=== PATIENT | male | born 1990 | race American Indian/Alaskan Native ===

== ENCOUNTER 2019-07-21 19:27 | Emergency (ER) | payer SELFPAY ==
--- NOTE | 2019-07-21 20:46 | Emergency Department Report ---
Blank Doc - Documentation Documentation: 28-year-old male that presents with left wrist pain. This initial assessment/diagnostic orders/clinical plan/treatment(s) is/are subject to change based on patient's health status, clinical progression and re- assessment by fellow clinical providers in the ED. Further treatment and workup at subsequent clinical providers discretion. Patient/guardians urged not to elope from the ED as their condition may be serious if not clinically assessed and managed. Initial orders include: 1- Patient sent to [facility] for further evaluation and treatment 2- xray
--- NOTE | 2019-07-21 21:19 | XRay Report ---
LEFT WRIST 4 VIEWS. INDICATION / CLINICAL INFORMATION: wrist pain COMPARISON: None available. FINDINGS: BONES / JOINT(S): No acute fracture or subluxation. No significant arthritis. SOFT TISSUES: No significant abnormality. ADDITIONAL FINDINGS: None. Signer Name: Jim Vail MD Signed: 07/21/2019 9:15 PM Workstation Name: [id number]
--- NOTE | 2019-07-22 01:58 | Emergency Department Report ---
Upper Extremity - HPI Chief Complaint: Extremity Injury, Upper Stated Complaint: WRIST INJURY Time Seen by Provider: 07/21/19 20:45 Other History: Patient is a 28-year-old male who presents to the emergency room with complaints of left wrist pain that radiates to the left thumb that began 2 weeks ago. He denies any fall or injury. He states he does a lot of repetitive movements at work and lifts heavy. He denies any numbness or weakness. He denies any previous injury of the wrist. He denies any past medical history allergies medications. ED Review of Systems ROS: Stated complaint: WRIST INJURY Other details as noted in HPI Comment: All other systems reviewed and negative ED Past Medical Hx - Past Medical History Hx Asthma: Yes - Social History Smoking Status: Current Every Day Smoker Substance Use Type: Marijuana - Medications Home Medications: Home Medications Medication Instructions Recorded Confirmed Last Taken Type LORazepam [Ativan] 1 mg PO BID PRN #20 tablet 01/18/15 Unknown Rx Acetaminophen/Codeine [Tylenol #3] 1 tab PO Q6H #14 tab 10/31/15 Unknown Rx Ibuprofen [Motrin] 800 mg PO Q8HR #30 tablet 10/31/15 Unknown Rx Naproxen [Naprosyn TAB] 500 mg PO BID PRN #20 tablet 07/22/19 Unknown Rx Upper Extremity Exam - Exam General: Vital signs noted. No distress. Alert and acting appropriately. Elbow: Yes Normal Range of Motion in Elbow, No Elbow Tenderness, No Elbow Deformity Forearm: No Forearm Tenderness, No Forearm Deformity, No Pain with Pronation, No Pain with Supination Wrist: Yes Wrist Tenderness (left lateral wrist TTP, no edema, no deformity, FROM of the left wrist, 2+ radial pulse, TTP over the left thenar emminence), Yes Normal ROM in Wrist, No Wrist Deformity, No Snuffbox Tenderness, No Pain with Axial Thumb Compression Hand: Yes Digit Tenderness (left thenar emminence), Yes Normal ROM in Digit(s), No Hand Tenderness, No Hand Deformity, No Digit(s) Deformity, No Tendon Dysfunction CMS Exam: Yes Normal Distal Pulses, Yes Normal Capillary Refill, Yes Normal Distal Sensation, No Broken Skin ED Course Vital Signs 07/21/19 20:46 Temperature 98.5 F Pulse Rate 53 L Respiratory 18 Rate Blood Pressure 142/83 O2 Sat by Pulse 99 Oximetry ED Medical Decision Making - Radiology Data Radiology results: report reviewed LEFT WRIST 4 VIEWS. INDICATION / CLINICAL INFORMATION: wrist pain COMPARISON: None available. FINDINGS: BONES / JOINT(S): No acute fracture or subluxation. No significant arthritis. SOFT TISSUES: No significant abnormality. ADDITIONAL FINDINGS: None. Signer Name: Jim Vail MD Signed: 07/21/2019 9:15 PM Workstation Name: [id number] Transcribed By: ES Dictated By: Jim Vail MD Electronically Authenticated By: Jim Vail MD Signed Date/Time: 07/21/192114 - Medical Decision Making Patient is a 28-year-old male who presents to the emergency room with complaints of left wrist pain that radiates to the left thumb that began 2 weeks ago. He denies any fall or injury. He states he does a lot of repetitive movements at work and lifts heavy. He denies any numbness or weakness. He denies any previous injury of the wrist. He denies any past medical history allergies medications. on exam: left lateral wrist TTP, no edema, no deformity, FROM of the left wrist, 2+ radial pulse, TTP over the left thenar emminence. XR left wrist: No acute fracture or subluxation. No significant arthritis. SOFT TISSUES: No significant abnormality. History and examination consistent with de Quervain's tendonitis vs carpal tunnel. Discussed with patient to get a wrist wrap over the counter and wear while working. Advised to take medication as prescribed as needed. May use ice for 15 minutes at a time and rest. Follow-up with orthopedic doctor if symptoms not improving. Return to the emergency room for any new or worsening symptoms. - Differential Diagnosis sprain, carpal tunnel, de Quervain's Critical care attestation.: If time is entered above; I have spent that time in minutes in the direct care of this critically ill patient, excluding procedure time. ED Disposition Clinical Impression: Left wrist pain Disposition: DC-01 TO HOME OR SELFCARE Is pt being admited?: No Does the pt Need Aspirin: No Condition: Stable Instructions: Carpal Tunnel Syndrome (ED), De Quervain Disease (ED) Additional Instructions: get a wrist wrap over the counter and wear while working. take medication as prescribed as needed. May use ice for 15 minutes at a time and rest. Follow-up with orthopedic doctor if symptoms not improving. Return to the emergency room for any new or worsening symptoms. Prescriptions: Naproxen [Naprosyn TAB] 500 mg PO BID PRN #20 tablet PRN Reason: pain Referrals: [facility] [Provider Group] - as needed Forms: Work/School Release Form(ED) Time of Disposition: 02:02 Print Language: CITIZEN OF [place]
[2019-07-22 02:36] VITALS: BP 124/65
== END 2019-07-22 02:39 | disposition home or self-care (01) ==
LOC: ED 19:27
DX: M25.562 Pain in left knee (principal); J45.909 Unspecified asthma, uncomplicated; F17.200 Nicotine dependence, unspecified, uncomplicated; F12.10 Cannabis abuse, uncomplicated; Z79.899 Other long term (current) drug therapy; Z91.013 Allergy to seafood